=== PATIENT | female | born 1985 | race African-American/Black ===

== ENCOUNTER 2018-04-12 01:43 | Emergency (ER) | payer SELFPAY ==
[~2018-04-12] VITALS: Ht 154.9 cm; Wt 63.5 kg
[~2018-04-12 01:43] MED LIST: LIDOCAINE VISCO20 ML PO; NKM; PREDNISONE20 MG ORAL
[2018-04-12 02:27] VITALS: BP 132/88
[2018-04-12 02:32] LABS: APPEARANCE,URINE CLEAR; BILIRUBIN, URINE NEGATIVE (NEGATIVE); GLUCOSE, URINE (UA) NEGATIVE (NEGATIVE); KETONES,URINE NEGATIVE (NEGATIVE); LEUKOCYTE ESTERASE ,URINE 1+ (NEGATIVE); NITRITE,URINE NEGATIVE (NEGATIVE); PH,URINE 6 (4.5-8.0); PROTEIN,URINE 1+ (NEGATIVE); UROBILINOGEN,URINE 1 MG/DL (0.0-1.0)
[2018-04-12 02:40] LABS: COLOR,URINE YELLOW
--- NOTE | 2018-04-12 03:41 | Emergency Room Report ---
History of Present Illness General Chief Complaint: Abdominal Pain Source: Patient Present Illness HPI Patient presents with vaginal discharge. She did have pain 2 weeks ago however there is no pain at this time. It's smelly and there is clear of menstrual flow which is different for her. No fevers, suprapubic pain, dysuria. She douched before coming in. The pain was during intercourse. It got better. It was fairly severe at the time. H/O ectopic L - treated with methotrexate. Improved without surgery. No URI sy, dyspnea, chest pain, rashes, NV, change in bowels, joint pain. 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 Last Menstrual Period: Mar Reviewed Nursing Documentation: PMH: Agreed; PSxH: Agreed Nursing Documentation-PMH Hx Cardiac Problems: No Hx Cancer: No Hx Neurological Problems: No Review of Systems All Other Systems: negative except mentioned in HPI Physical Exam Vital Signs Date Time Temp Pulse Resp B/P (MAP) Pulse Ox O2 Delivery O2 Flow Rate FiO2 04/12/18 01:49 98.0 91 18 132/88 97 Room Air 98.1 Sp02 EP Interpretation: reviewed, normal General Appearance: well appearing, no apparent distress, GCS 15 Head: normocephalic Eyes: bilateral eye normal inspection, bilateral eye PERRL ENT: moist mucus membranes Neck: supple Respiratory: lungs clear, normal breath sounds Cardiovascular #1: regular rate, rhythm Cardiovascular #2: 2+ radial (R) Gastrointestinal: normal inspection, normal bowel sounds, non tender, no mass, non-distended Genitourinary: no CVA tenderness, adnexa normal, bladder normal, cervix normal , uterus normal, other - menstrual blood and d/c Musculoskeletal: back normal, gait/station normal, normal range of motion Neurologic: alert, oriented x3, grossly normal Psychiatric: mood/affect normal Skin: normal inspection, warm/dry Medical Decision Making Diagnostic Impression: Primary Impression: Vaginitis Qualified Codes: N76.0 - Acute vaginitis ER Course Patient with vaginal d/c with prior h/o ectopic. DDx; bv, trich, UTI, yeast. Unable to diagnose based on pelvic. No pain at this time. UA and wet mount indicated. UA clear (menstrual blood). Wet mount with clue cells. Treated with Flagyl. Patient stable for outpatient observation and treatment. Laboratory Tests Test 04/12/18 01:52 Urine Color Yellow Urine Appearance Clear Urine pH 6 (4.5-8.0) Urine Specific Sarah Ann 1.020 (1.005-1.035) Urine Protein 1+ (NEGATIVE) H Urine Glucose (UA) Negative (NEGATIVE) Urine Ketones Negative (NEGATIVE) Urine Blood 4+ (NEGATIVE) H Urine Nitrite Negative (NEGATIVE) Urine Bilirubin Negative (NEGATIVE) Urine Urobilinogen 1 MG/DL (0.0-1.0) H Urine Leukocyte Esterase 1+ (NEGATIVE) H Urine RBC 2-4 /HPF (0 - 2) H Urine WBC 2-4 /HPF (0 - 2) Urine Squamous Epithelial Cells Occasional /LPF Urine Bacteria Occasional /HPF (NONE) Urine HCG, Qualitative Negative (NEGATIVE) Microbiology Date/Time Source Procedure Growth Status 04/12/18 01:52 Vaginal Wet Prep - Final Complete Last Vital Signs Date Time Temp Pulse Resp B/P (MAP) Pulse Ox O2 Delivery O2 Flow Rate FiO2 04/12/18 03:53 86 18 124/83 96 Room Air 04/12/18 03:53 98.0 Status: improved Disposition: HOME, SELF-CARE Condition: Improved Scripts Metronidazole* (FLAGYL*) 500 Mg Tablet 500 MG ORAL TID, #20 TAB Prov: Blas Hinojosa M.D. 04/12/18 Referrals: NOT CHOSEN KEILY/,REFERRING (PCP) Blas Hinojosa M.D. Apr 12, 2018 03:40
[2018-04-12] MEDS ORDERED: METRONIDAZOLE500 MG ORAL (03:44)
[2018-04-12] MEDS ORDERED: metroNIDAZOLE 500mg tab ORAL ONE (03:45)
[2018-04-12 03:53] VITALS: BP 124/83
== END 2018-04-12 03:53 | disposition home or self-care (01) ==
LOC: EMR 02:54
DX: N76.0 Acute vaginitis (principal); R10.31 Right lower quadrant pain; F17.200 Nicotine dependence, unspecified, uncomplicated
CPT/HCPCS: 81003; 81025; 87210; 99283

== ENCOUNTER 2019-01-27 05:37 | Emergency (ER) | payer SELFPAY ==
[~2019-01-27] VITALS: Ht 154.9 cm; Wt 56.7 kg
[2019-01-27] VITALS (8 sets, daily range): BP systolic 116–136; BP diastolic 74–85
[~2019-01-27 05:37] MED LIST changes: +METRONIDAZOLE500 MG ORAL
[2019-01-27] MEDS ORDERED: Ketorolac 30mg Inj IV ONE (05:45)
[2019-01-27] MEDS ORDERED: Morphine Sulfate 4mg/ml Inj (IV USE ONLY) IVP ONE ×2 (05:45→11:30)
[2019-01-27] MEDS ORDERED: Isovue-300 100ml vial INJ PRN (05:45)
[2019-01-27] MEDS ORDERED: LORazepam Inj 2mg/ml 1ml IV ONE (05:45)
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
[2019-01-27] MEDS ORDERED: Neosporin Oint Ud Pkt TOPIC ONE (06:00)
[2019-01-27 07:06] LABS: ANION GAP 10 mmol/L (5-15); BLOOD UREA NITROGEN 15 mg/dL (7-18); CALCIUM 8.4 MG/DL (8.5-10.1); CARBON DIOXIDE 25 MMOL/L (21-32); CHLORIDE 105 MMOL/L (98-107); CREATININE 0.8 MG/DL (0.55-1.30); POTASSIUM 3.8 MMOL/L (3.5-5.1); SODIUM 140 MMOL/L (136-145)
[2019-01-27 07:16] LABS: BASOPHILS % (AUTO) 0.7 % (0.0-2.0); EOSINOPHILS % (AUTO) 0.9 % (0.0-3.0); HEMATOCRIT 40.6 % (37.0-47.0); LYMPHOCYTES % (AUTO) 17.7 % (20.0-45.0); MEAN CORPUSCULAR VOLUME 84 FL (80-99); MONOCYTES % (AUTO) 6.8 % (1.0-10.0); NEUTROPHILS % (AUTO) 73.8 % (45.0-75.0); PLATELET COUNT 343 K/UL (150-450); RED BLOOD COUNT 4.82 M/UL (4.20-5.40); RED CELL DISTRIBUTION WIDTH 10.8 % (11.6-14.8); WHITE BLOOD COUNT 12.5 K/UL (4.8-10.8)
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
--- NOTE | 2019-01-27 08:50 | Diagnostic Imaging Report ---
Indication: Chest pain Technique: One view of the chest Comparison: none Findings: The lungs and pleural spaces are clear. The heart size is normal. The bones are intact Impression: Negative
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
== END 2019-01-27 14:55 | disposition short-term general hospital (02) ==
LOC: EDBD 05:37 → EMR 06:13
DX: S12.500A Unspecified displaced fracture of sixth cervical vertebra, initial encounter for closed fracture (principal); S12.400A Unspecified displaced fracture of fifth cervical vertebra, initial encounter for closed fracture; F19.10 Other psychoactive substance abuse, uncomplicated; V43.52XA Car driver injured in collision with other type car in traffic accident, initial encounter; Y92.9 Unspecified place or not applicable; M79.631 Pain in right forearm; M79.604 Pain in right leg; R10.9 Unspecified abdominal pain; R07.9 Chest pain, unspecified
CPT/HCPCS: 36415; 70450; 71045; 72125; 73060; 73090; 74177; 80048; 80307; 84703; 85025; 96361; 96366; 96374; 96376; 99285; G0480; J1885; J2270; J2405; Q9967; 80329